=== PATIENT | female | born 1945 | race Caucasian/White ===

== ENCOUNTER → 2017-03-05 | Outpatient (CLI) | payer MEDICARE, BC ==
--- NOTE | 2017-03-05 11:18 | MM ---
Reason for exam: additional evaluation requested from prior study. Last mammogram was performed 7 years and 3 months ago. History: Patient is postmenopausal. Benign excisional biopsy of the right breast, 1999. Took other hormone for 2 years. Physical Findings: Nurse did not find any significant physical abnormalities on exam. MG 3D Diag Mammo W/Cad SONIA Bilateral CC and MLO view(s) were taken. Prior study comparison: May 08, 2016, mammogram. October 28, 2014, mammogram. There are scattered fibroglandular densities. No significant new findings when compared with previous films. These results were verbally communicated with the patient and result sheet given to the patient on 03/05/17. ASSESSMENT: Negative, BI-RAD 1 RECOMMENDATION: Routine screening mammogram of both breasts in 1 year.
== END | disposition home or self-care (01) ==
LOC: RADMAMWWP 10:15
PROVIDERS: ATTEND Family Medicine
DX: Z12.4 Encounter for screening for malignant neoplasm of cervix (principal); R92.8 Other abnormal and inconclusive findings on diagnostic imaging of breast; D17.79 Benign lipomatous neoplasm of other sites
CPT/HCPCS: 87491; 87591; 87070; G0204; G0279; 87205

== ENCOUNTER → 2019-03-09 | Outpatient (CLI) | payer MEDICARE, BC ==
--- NOTE | 2019-03-10 02:44 | MR ---
EXAMINATION TYPE: MR shoulder LT wo con DATE OF EXAM: 03/09/2019 COMPARISON: None HISTORY: Left shoulder pain TECHNIQUE: Multiplanar, multisequence imaging of the left shoulder is performed without contrast. FINDINGS: There is a shoulder joint effusion. The subscapularis tendon is intact. Biceps tendon is intact. The anterior glenoid labrum shows a mild thickening and linear defect. There is hypertrophic spurring at the AC joint and mild subacromial impingement. There is very slight increased signal in the supraspinatus tendon near the greater tuberosity of the humerus. There is no retraction. I see no bony destructive process. 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 Mild degenerative signal changes wi thin the supraspinatus tendon without a complete tear. Shoulder joint effusion with some deformity and thickening and tear of the anterior glenoid labrum.
--- NOTE | 2019-03-10 10:12 | XR ---
EXAMINATION TYPE: XR shoulder complete LT DATE OF EXAM: 03/09/2019 COMPARISON: NONE HISTORY: Pain TECHNIQUE: Three views are submitted. FINDINGS: The osseous structures are intact. There is no acute fracture or dislocation. Arthropathy of the AC joint.. IMPRESSION: 1. AC joint arthropathy.
== END | disposition home or self-care (01) ==
LOC: RADMRIMAIN 15:57
PROVIDERS: ATTEND Family Medicine
DX: S43.492A Other sprain of left shoulder joint, initial encounter (principal); M19.012 Primary osteoarthritis, left shoulder; R93.7 Abnormal findings on diagnostic imaging of other parts of musculoskeletal system

== ENCOUNTER 2022-03-05 10:57 | Emergency (ER) | payer MEDICARE, BC ==
[2022-03-05 13:42] LABS: Basophils % (A) 1 %; Eosinophils # (A) 0.1 k/uL (0-0.7); Eosinophils % (A) 2 %; HCT 42.1 % (34.0-46.0); HGB 13.6 gm/dL (11.4-16.0); Lymphocytes # (A) 1.2 k/uL (1.0-4.8); Lymphocytes % (A) 20 %; MCH 31.8 pg (25.0-35.0); MCHC 32.3 g/dL (31.0-37.0); MCV 98.5 fL (80.0-100.0); Mean Platelet Volume 7.8; Monocytes # (A) 0.5 k/uL (0-1.0); Monocytes % (A) 8 %; Neutrophils # (A) 3.9 k/uL (1.3-7.7); Neutrophils % (A) 66 %; Platelet Count 225 k/uL (150-450); RBC 4.27 m/uL (3.80-5.40); WBC 5.9 k/uL (3.8-10.6)
--- NOTE | 2022-03-05 13:48 | XR ---
EXAMINATION TYPE: XR chest 2V DATE OF EXAM: 03/05/2022 COMPARISON: NONE TECHNIQUE: PA and lateral views submitted. HISTORY: Chest pain FINDINGS: The lungs are clear and there is no pneumothorax, pleural effusion, or focal pneumonia. Atheroscler otic change of aorta. Aortic arch is prominent. Aneurysm in the differential diagnosis. Hypertrophic degenerative changes in the spine. IMPRESSION: 1. No acute process. Correlate for thoracic aortic aneurysm
[2022-03-05 13:54] LABS: ALT 22 U/L (4-34); AST 35 U/L (14-36); African American GFR (CKD) >90 (>60 ml/min/1.73 sqM); Albumin 4.8 g/dL (3.5-5.0); Alkaline Phosphatase 67 U/L (38-126); Anion Gap 13 mmol/L; Blood Urea Nitrogen 15 mg/dL (7-17); Calcium 10.1 mg/dL (8.4-10.2); Carbon Dioxide 24 mmol/L (22-30); Chloride 100 mmol/L (98-107); Glucose 93 mg/dL (74-99); INR 0.9 (<1.2); Magnesium 2.2 mg/dL (1.6-2.3); Non-African American GFR(CKD) 84 (>60 ml/min/1.73 sqM); Partial Thromboplastin Time 24.9 sec (22.0-30.0); Potassium 4.3 mmol/L (3.5-5.1); Prothrombin Time 10.2 sec (9.0-12.0); Sodium 137 mmol/L (137-145); Total Bilirubin 0.5 mg/dL (0.2-1.3)
[2022-03-05] MEDS ORDERED: LORazepam 1 MG TAB PO STA (14:25)
--- NOTE | 2022-03-05 14:26 | ED ---
Overdose HPI - General Chief Complaint: Overdose Stated Complaint: Overdose Time Seen by Provider: 03/05/22 13:02 Source: patient Mode of arrival: wheelchair Limitations: no limitations - History of Present Illness Initial Comments: 76-year-old female presents to the emergency department with accidental overdose. States that she is supposed to take 3, 50 mg hydralazine tablets daily. She had her vitamins in one hand and her hydralazine doses in her other hand. She actually swallowed the 3 hydralazine pills instead of taking the vitamins. Patient immediately began feeling palpitations and some shortness of breath. Patient denies intentional ingestion. No chest pain. Denies taking any other medications in excess. No history of cardiac disease other than hypertension. No other alleviating, precipitating or modifying factors - Related Data Allergies Allergy/AdvReac Type Severity Reaction Status Date / Time No Known Allergies Allergy Verified 03/05/22 11:06 Review of Systems ROS Statement: Those systems with pertinent positive or pertinent negative responses have been documented in the HPI. ROS Other: All systems not noted in ROS Statement are negative. Past Medical History Past Medical History: Hypertension History of Any Multi-Drug Resistant Organisms: None Reported Past Surgical History: Appendectomy, Cholecystectomy, Hernia Repair, Orthopedic Surgery, Tonsillectomy Past Psychological History: No Psychological Hx Reported Smoking Status: Never smoker Past Alcohol Use History: None Reported Past Drug Use History: None Reported General Exam Limitations: no limitations General appearance: alert, in no apparent distress, anxious Head exam: Present: atraumatic, normocephalic, normal inspection Eye exam: Present: normal appearance, PERRL, EOMI. Absent: scleral icterus, conjunctival injection, periorbital swelling ENT exam: Present: normal exam, mucous membranes moist Neck exam: Present: normal inspection. Absent: tenderness, meningismus, lymphadenopathy Respiratory exam: Present: normal lung sounds bilaterally. Absent: respiratory distress, wheezes, rales, rhonchi, stridor Cardiovascular Exam: Present: regular rate, tachycardia, normal heart sounds. Absent: systolic murmur, diastolic murmur, rubs, gallop, clicks GI/Abdominal exam: Present: soft, normal bowel sounds. Absent: distended, tenderness, guarding, rebound, rigid Extremities exam: Present: normal inspection, full ROM, normal capillary refill. Absent: tenderness, pedal edema, joint swelling, calf tenderness Back exam: Present: normal inspection Neurological exam: Present: alert, oriented X3, CN II-XII intact Psychiatric exam: Present: normal affect, normal mood Skin exam: Present: warm, dry, intact, normal color. Absent: rash Course Vital Signs 03/05/22 03/05/22 03/05/22 11:02 13:28 14:30 Temperature 97.8 F Pulse Rate 117 H 91 87 Respiratory 18 20 11 L Rate Blood Pressure 172/83 189/96 185/107 O2 Sat by Pulse 95 97 Oximetry 03/05/22 03/05/22 03/05/22 14:42 15:00 15:30 Temperature Pulse Rate 81 89 79 Respiratory 17 9 L Rate Blood Pressure 178/90 170/90 189/103 O2 Sat by Pulse Oximetry 03/05/22 03/05/22 15:37 15:40 Temperature 97.6 F Pulse Rate 81 Respiratory Rate Blood Pressure 160/97 O2 Sat by Pulse Oximetry - Reevaluation(s) Reevaluation #1: 03/05/22 14:26 Spoke with poison control. Recommends one further hour of observation Medical Decision Making - Medical Decision Making Upon arrival patient was placed into room 8. Thorough history and physical exam was performed. 12-lead EKG was obtained. Laboratory studies are conducted. I did contact poison control who recommends 6 hours of observation. Patient will be kept until 4 PM to observe for hypotension. 1 mg of Ativan as ordered as the patient continues to be extremely tremulous with high blood pressure. Patient agreeable to the plan. Instructed to follow-up with her primary care doctor in 2-4 days and return for any new or worsening symptoms. Patient was discharged home in stable condition - Lab Data Result diagrams: 03/05/22 13:07 03/05/22 13:07 Lab Results 03/05/22 03/05/22 03/05/22 Range/Units 13:07 13:07 13:07 WBC 5.9 (3.8-10.6) k/uL RBC 4.27 (3.80-5.40) m/uL Hgb 13.6 (11.4-16.0) gm/dL Hct 42.1 (34.0-46.0) % MCV 98.5 (80.0-100.0) fL MCH 31.8 (25.0-35.0) pg MCHC 32.3 (31.0-37.0) g/dL RDW 12.0 (11.5-15.5) % Plt Count 225 (150-450) k/uL MPV 7.8 Neutrophils % 66 % Lymphocytes % 20 % Monocytes % 8 % Eosinophils % 2 % Basophils % 1 % Neutrophils # 3.9 (1.3-7.7) k/uL Lymphocytes # 1.2 (1.0-4.8) k/uL Monocytes # 0.5 (0-1.0) k/uL Eosinophils # 0.1 (0-0.7) k/uL Basophils # 0.0 (0-0.2) k/uL PT 10.2 (9.0-12.0) sec INR 0.9 (<1.2) APTT 24.9 (22.0-30.0) sec Sodium 137 (137-145) mmol/L Potassium 4.3 (3.5-5.1) mmol/L Chloride 100 (98-107) mmol/L Carbon Dioxide 24 (22-30) mmol/L Anion Gap 13 mmol/L BUN 15 (7-17) mg/dL Creatinine 0.71 (0.52-1.04) mg/dL Est GFR (CKD-EPI)AfAm >90 (>60 ml/min/1.73 sqM) Est GFR (CKD-EPI)NonAf 84 (>60 ml/min/1.73 sqM) Glucose 93 (74-99) mg/dL Calcium 10.1 (8.4-10.2) mg/dL Magnesium 2.2 (1.6-2.3) mg/dL Total Bilirubin 0.5 (0.2-1.3) mg/dL AST 35 (14-36) U/L ALT 22 (4-34) U/L Alkaline Phosphatase 67 (38-126) U/L Troponin I (0.000-0.034) ng/mL Total Protein 8.0 (6.3-8.2) g/dL Albumin 4.8 (3.5-5.0) g/dL 03/05/22 Range/Units 13:07 WBC (3.8-10.6) k/uL RBC (3.80-5.40) m/uL Hgb (11.4-16.0) gm/dL Hct (34.0-46.0) % MCV (80.0-100.0) fL MCH (25.0-35.0) pg MCHC (31.0-37.0) g/dL RDW (11.5-15.5) % Plt Count (150-450) k/uL MPV Neutrophils % % Lymphocytes % % Monocytes % % Eosinophils % % Basophils % % Neutrophils # (1.3-7.7) k/uL Lymphocytes # (1.0-4.8) k/uL Monocytes # (0-1.0) k/uL Eosinophils # (0-0.7) k/uL Basophils # (0-0.2) k/uL PT (9.0-12.0) sec INR (<1.2) APTT (22.0-30.0) sec Sodium (137-145) mmol/L Potassium (3.5-5.1) mmol/L Chloride (98-107) mmol/L Carbon Dioxide (22-30) mmol/L Anion Gap mmol/L BUN (7-17) mg/dL Creatinine (0.52-1.04) mg/dL Est GFR (CKD-EPI)AfAm (>60 ml/min/1.73 sqM) Est GFR (CKD-EPI)NonAf (>60 ml/min/1.73 sqM) Glucose (74-99) mg/dL Calcium (8.4-10.2) mg/dL Magnesium (1.6-2.3) mg/dL Total Bilirubin (0.2-1.3) mg/dL AST (14-36) U/L ALT (4-34) U/L Alkaline Phosphatase (38-126) U/L Troponin I <0.012 (0.000-0.034) ng/mL Total Protein (6.3-8.2) g/dL Albumin (3.5-5.0) g/dL - EKG Data EKG Comments: EKG demonstrates sinus rhythm with a rate of 86. GA interval 170. QRS 66. QTC 371. No acute ST segment elevations or depressions Disposition Clinical Impression: Accidental drug overdose Disposition: HOME SELF-CARE Condition: Stable Instructions (If sedation given, give patient instructions): Adult Overdose (ED) Additional Instructions: Please do not take any hydralazine tonight. Start taking hyour medications as directed tomorrow. Return for any new or worsening symptoms Is patient prescribed a controlled substance at d/c from ED?: No Referrals: Anthony Wolf MD [Primary Care Provider] - 1-2 days Time of Disposition: 16:00
[2022-03-05 15:37] VITALS: RESP 9
[2022-03-05 15:38] VITALS: BP 160/97; PULSE 81
[2022-03-05 15:41] VITALS: TEMP 97.6
== END 2022-03-05 15:48 | disposition home or self-care (01) ==
LOC: EC 10:57
DX: T46.5X1A Poisoning by other antihypertensive drugs, accidental (unintentional), initial encounter (principal); I10 Essential (primary) hypertension
CPT/HCPCS: 36415; 71046; 80053; 83735; 84484; 85025; 85610; 85730; 93005; 99284

== ENCOUNTER → 2022-04-23 | Outpatient (CLI) | payer MEDICARE, BC ==
--- NOTE | 2022-04-23 15:40 | CT ---
EXAMINATION TYPE: CT angio chest DATE OF EXAM: 04/23/2022 COMPARISON: None HISTORY: 76-year-old female I 77.819, unspecified site aortic ectasia, aneurysm TECHNIQUE: Contiguous axial scanning of the chest performed without and with IV Contrast, patient inj ected with 100 mL of Isovue 370. Coronal and sagittal MIP reconstructions performed. 3-D reconstructi ons generated on a dedicated independent workstation. CT DLP: 800 mGycm Automated exposure control for dose reduction was used. FINDINGS: Heart upper limits of normal in size without pericardial effusion. LAD coronary calcifications. Some proximal circumflex coronary artery calcifications are present. Aortic root borderline ectatic at 3.5 cm. Ascending aorta measures up to 3.4 cm. Proximal articular ectatic at 3.7 cm. Bovine configuration to the aortic arch. Distal arch ectatic at 3.2 cm. Lower descending thoracic aorta normal caliber at 2.2 cm. No evidence for acute intramural hematoma or aortic dissection. Scattered mild atherosclerotic calcif ications are present. Borderline caliber to the main right and left pulmonary arteries up to 2.6 cm may reflect underlying pulmonary hypertension. No thoracic lymphadenopathy by CT size criteria. Mild biapical pleural-parenchymal scarring. Mild dependent atelectasis. Some additional stranding ate lectasis or scarring in the lower lungs. Some mild groundglass change could reflect some generalized basilar atelectasis. No consolidation or pleural effusion. Small hiatal hernia. Cholecystectomy clips. Bones: Degenerative subchondral cystic change at the left glenohumeral joint. Moderate degenerative d isc disease midthoracic spine. Accentuated midthoracic kyphosis. IMPRESSION: 1. CORONARY ARTERY DISEASE WITH LAD AND PROXIMAL CIRCUMFLEX CORONARY ARTERY CALCIFICATIONS. 2. BORDERLINE ECTATIC AORTIC ROOT AT 3.5 CM AND ECTATIC DISTAL AORTIC ARCH AT 3.2 CM. 3. BORDERLINE ENLARGED CALIBER TO THE MAIN RIGHT AND LEFT PULMONARY ARTERIES AND 2.6 CM MAY REFLECT U NDERLYING PULMONARY ARTERIAL HYPERTENSION. 4. SMALL HIATAL HERNIA.
== END | disposition home or self-care (01) ==
LOC: RADCTMAIN 11:37
PROVIDERS: ATTEND Family Medicine
DX: I25.10 Atherosclerotic heart disease of native coronary artery without angina pectoris (principal); K44.9 Diaphragmatic hernia without obstruction or gangrene
CPT/HCPCS: 82565; 84520; 71275; 36415; Q9967

== ENCOUNTER → 2023-03-07 | Outpatient (CLI) | payer MEDICARE, BC ==
--- NOTE | 2023-03-25 00:50 | MR ---
EXAMINATION TYPE: MR sacroiliac joints wo con DATE OF EXAM: 03/07/2023 COMPARISON: Outside MRI lumbar spine August 21, 2022 HISTORY: SI joint pain, left hip pain, history of surgery Standard multiplanar, multisequence MRI departmental protocol Multiplanar, multisequence images of the sacroiliac joints were acquired without contrast. FINDINGS: There is susceptibility artifact from 2 fixating screws along the bilateral sacroiliac join ts. This along with lack of contrast makes evaluation suboptimal. Sacroiliac joints appear fairly sym metric in appearance. No significant or asymmetric focal edema clearly identified. There is symmetric narrowing of the sacroiliac joints anteriorly. Sacral alar grossly maintained. Small size spectral flexed uterus correlates with patient's chronologic age. Urinary bladder appears within normal limits. Sigmoid colonic diverticula are seen. No pelvic fluid collection is evident. There is disc desiccation with disc space narrowing in the lower lumbar spine. Posterior disc herniat ions are present at L4-L5 and L5-S1 levels on sagittal image 15. IMPRESSION: As above.
== END | disposition home or self-care (01) ==
LOC: RADMRIMAIN 11:49
PROVIDERS: ATTEND Family Medicine
DX: M53.3 Sacrococcygeal disorders, not elsewhere classified (principal); M51.37 Other intervertebral disc degeneration, lumbosacral region; M51.36 Other intervertebral disc degeneration, lumbar region; K57.30 Diverticulosis of large intestine without perforation or abscess without bleeding
CPT/HCPCS: 72195

== ENCOUNTER → 2024-02-10 | Outpatient (CLI) | payer MEDICARE, BC ==
--- NOTE | 2024-02-10 19:26 | XR ---
EXAMINATION TYPE: XR foot complete LT DATE OF EXAM: 02/10/2024 4:05 PM CLINICAL INDICATION:Female, 78 years old with history of M84.375GSTRESS FRACTURE, LEFT FOOT, SUBS FOR FX W DELAY HEAL; H COMPARISON: None TECHNIQUE: XR foot complete LT examined in the AP, oblique, and lateral projections. FINDINGS: Postsurgical changes to the cuneiform is in the first metatarsal. Hardware appears present there is at least 4 screws which may have been abandoned with subsequent repair. Mild lucency around one of the screws through the cuneiforms present on at least 2 views. No evidence of any acute osseous pathology. No evidence of soft tissue swelling. Multifocal degenera tion changes throughout the joints of the foot with osteophyte formation and joint space narrowing. P osttreatment changes to the anterior distal tibia. Enthesophyte formation of the calcaneus. IMPRESSION: 1. Postsurgical changes with multiple screws in the area around the first digit silhouette which may have been abandoned. There is some lucency around at least one of the screws on to the projections s uggesting loosening. 2. No evidence of acute fracture. 3. Multifocal degeneration changes throughout the joints of the foot.
== END | disposition home or self-care (01) ==
LOC: RADXRMAIN 15:49
PROVIDERS: ATTEND Family Medicine
DX: M84.375G Stress fracture, left foot, subsequent encounter for fracture with delayed healing (principal); M19.072 Primary osteoarthritis, left ankle and foot

== ENCOUNTER → 2024-04-28 | Outpatient (CLI) | payer MEDICARE, BC ==
--- NOTE | 2024-04-28 10:17 | BD ---
EXAMINATION TYPE: Axial Bone Density DATE OF EXAM: 04/28/2024 CLINICAL HISTORY: 78 years old Female. ICD-10 CODE: Z78.0 MENOPAUSAL STATE Height: 63" Weight: 157.8lbs FRAX RISK QUESTIONS: Alcohol (3 or more units per day): No Family History (Parent hip fracture): No Glucocorticoids (More than 3mos): No (Ex: prednisone, prednisolone, methylprednisolone, dexamethasone, and hydrocortisone). History of Fracture in Adulthood: Yes, sacrum Secondary Osteoporosis: 1. Type 1 Diabetes: No 2. Hyperthyroidism: No 3. Menopause before 45: No 4. Malnutrition: No 5. Chronic liver disease: No Rheumatoid Arthritis: No Current Tobacco Use: No RISK FACTORS HISTORY OF: Hip Fracture (Right/Left): No Spine Fracture: Lumbar surgery, SI joints When: Approx. 15 years ago History of Wrist Fracture: No Surgery to Spine/Hip(right/left)/Wrist (right/left): No When: MEDICATIONS: Thyroid Medications: No Osteoporosis Medications:No EXAM MEASUREMENTS: Bone mineral densitometry was performed using the [employer] System. Bone mineral density as measured about the Lumbar spine is: ----- L1-L4(G/cm2): 1.155 T Score Values are as follows: ----- L1: -1.3 ----- L2: -0.7 ----- L3: 0.5 ----- L4: 0.5 ----- L1-L4: -0.2 Z Score Values are as follows: ----- L1: 0.3 ----- L2: 0.9 ----- L3: 2.0 ----- L4: 2.1 ----- L1-L4: 1.4 Baseline @MPH Bone mineral density about the R hip (g/cm2): 0.699 Bone mineral density about the L hip (g/cm2): 0.725 T Score values are as follows: -----R Neck: -2.1 -----L Neck: -2.1 -----R Total: -2.4 -----L Total: -2.2 Z Score values are as follows: -----R Neck: -0.2 -----L Neck: -0.2 -----R Total: -0.7 -----L Total: -0.5 Baseline @MPH FRAX%s: The graph provided illustrates a 22.2% chance for a major osteoporotic fx and a 6.0% chance f or the hips probability for fx in 10 years time. IMPRESSION: Osteopenia (T Score between -2.5 and -1). There is slightly increased risk of fracture and the patient may be considered for treatment. Re-Screen 2-5 years. NOTE: T-SCORE=SD OF THE YOUNG ADULT MEAN. [facility], , 04/28/2024 10:15 AM
--- NOTE | 2024-05-10 09:00 | MM ---
Reason for Exam: Screening (asymptomatic). Last mammogram was performed 2 year(s) and 7 month(s) ago. Patient History: Menarche at age 12. First Full-Term at age 18. Left ovary removed at age 59. Postmenopausal. 1999, Benign Excisional Biopsy on the right side. Risk Values: Janee 5 year model risk: 1.6%. NCI Lifetime model risk: 3.1%. Prior Study Comparison: 10/28/2014 Screening Mammogram, Unknown. 05/08/2016 Screening Mammogram, Unknown. 03/05/2017 Bilateral Diagnostic Mammogram, [facility]. 08/03/2020 Bilateral Screening Mammogram, [place]. 10/01/2021 Bilateral Screening Mammogram, [place]. Tissue Density: The breasts are almost entirely fatty. Findings: Analyzed By CAD. Right breast: There is no suspicious group of microcalcifications or new suspicious mass. Benign-appearing calcifications right breast. Left breast: There is no suspicious group of microcalcifications or new suspicious mass. Benign-appearing calcifications left breast. Overall Assessment: Benign, BI-RAD 2 Management: Screening Mammogram of both breasts in [address] [facility] will attempt to contact patient to return for supplemental views and ultrasound if indicated. Patient should continue monthly self-breast exams. A clinical breast exam by your physician is recommended on an annual basis. This exam should not preclude additional follow-up of suspicious palpable abnormalities. Note on Janee scores and lifetime risk: 1. A Janee score greater than 3% is considered moderate risk. If this is the case, consider specialist referral to assess eligibility for a risk reducing agent. 2. If overall lifetime risk for the development of breast cancer is 20% or higher, the patient may qualify for future screening with alternating mammogram and breast MRI. [facility], , 05/10/2024 8:57 AM. Electronically signed and approved by: John Spears DO
== END | disposition home or self-care (01) ==
LOC: RADMAMWWP 07:30
PROVIDERS: ATTEND Family Medicine
DX: Z12.31 Encounter for screening mammogram for malignant neoplasm of breast (principal); M85.89 Other specified disorders of bone density and structure, multiple sites; Z78.0 Asymptomatic menopausal state; Z90.722 Acquired absence of ovaries, bilateral
CPT/HCPCS: 77063; 77067; 77080